=== PATIENT | male | born 1990 | race Caucasian/White ===

== ENCOUNTER 2017-04-09 19:28 | Emergency (ER) | payer MEDICARE ==
[2017-04-09 20:16] LABS: PH,URINE 6.5 (5.0 - 9.0); URINE BILIRUBIN NEGATIVE (NEGATIVE); URINE BLOOD NEGATIVE (NEGATIVE); URINE GLUCOSE (UA) NORMAL (NORMAL); URINE KETONE NEGATIVE (NEGATIVE); URINE LEUKOCYTE ESTERASE NEGATIVE (NEGATIVE); URINE NITRATE NEGATIVE (NEGATIVE); URINE PROTEIN NEGATIVE (NEGATIVE)
[2017-04-09 20:26] LABS: BASO % 0.2 % (0.2-1.2); EOS # 0.2 10_X3_uL (0.0-0.5); GRAN # 5.2 10_X3_uL (1.8-5.4); HEMATOCRIT 37.9 % (40-51); HEMOGLOBIN 12.4 g/dL (13.7-17.5); LYMPH # 2.8 10_X3_uL (1.3-3.6); MEAN CORPUSCULAR HEMOGLOBIN 29.1 pg (27.0-33.0); MEAN CORPUSCULAR HGB CONC 32.7 g/dL (32.0-36.0); MEAN PLATELET VOLUME 9.6 fl (7.5-11.5); MONO # 1.1 10_X3_uL (0.3-0.8); MONO % 11.8 % (5.3-12.2); PLATELET COUNT 319 x10_3/uL (163-337); RED BLOOD COUNT 4.26 x10_6/uL (4.6-6.1); RED CELL DISTRIBUTION WIDTH 12.9 % (11.6-14.4); WHITE BLOOD COUNT 9.3 x10_3/uL (4.2-9.1)
== END 2017-04-09 22:35 | disposition home or self-care (01) ==
LOC: ER 19:28
PROVIDERS: Internal Medicine
DX: M51.16 Intervertebral disc disorders with radiculopathy, lumbar region (principal); M54.5 Low back pain; F17.210 Nicotine dependence, cigarettes, uncomplicated
CPT/HCPCS: 72131; 81003; 85025; 96372; 99070; 99283-25; J1170